=== PATIENT | female | born 1995 | race Caucasian/White ===

== ENCOUNTER 2017-03-05 19:08 | Emergency (ER) | payer OTHER ==
[~2017-03-05] VITALS: Ht 165.1 cm; Wt 59.0 kg
[2017-03-05 19:35] VITALS: BP 111/72
--- NOTE | 2017-03-05 21:44 | NUR ---
PT TAKEN TO XRAY FROM JAY ROBERTSON
--- NOTE | 2017-03-05 23:07 | NUR ---
PT TAKEN TO OF
--- NOTE | 2017-03-05 23:23 | NUR ---
21/F c/o left shoulder pain x2 weeks. Denies injury or trauma. 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 Active ROM, CMS intact. AOX4, ambulates with steady gait. VSS.
--- NOTE | 2017-03-05 23:41 | NUR ---
Dr. Neely evaluating patient
[2017-03-05] MEDS ORDERED: IBUPROFEN 800 MG TAB PO ONE (23:50)
[2017-03-06 00:32] VITALS: BP 105/70
--- NOTE | 2017-03-06 00:33 | NUR ---
Patient discharged with v/s stable. Written and verbal after care instructions given and explained. Patient alert, oriented and verbalized understanding of instructions. Ambulatory with steady gait. All questions addressed prior to discharge. ID band removed. Patient advised to follow up with PMD. Rx of Cyclobenzaprine and Ibuprofen 800mg given. Patient educated on indication of medication including possible reaction and side effects. Opportunity to ask questions provided and answered.
== END 2017-03-06 00:33 | disposition home or self-care (01) ==
LOC: MED 19:08
DX: S46.912A Strain of unspecified muscle, fascia and tendon at shoulder and upper arm level, left arm, initial encounter (principal); M62.838 Other muscle spasm; X58.XXXA Exposure to other specified factors, initial encounter; Y93.89 Activity, other specified; Y92.89 Other specified places as the place of occurrence of the external cause; Y99.8 Other external cause status
CPT/HCPCS: 73030; 81025; 99284